=== PATIENT | female | born 1940 | race Caucasian/White ===

== ENCOUNTER 2017-02-23 16:06 | Emergency (ER) | payer MEDICARE ==
[2017-02-23 16:59] LABS: BASOPHIL 0.7 % (0-2); EOSINOPHIL 2.9 % (0-7); HCT 34.2 % (37.0-47.0); HGB 11.6 g/dl (12.5-16.0); LYMPHOCYTE 21.3 % (15-48); MCHC 33.9 g/dL (32.0-36.0); MCV 94.2 fL (78.0-100.0); MONOCYTE 11.1 % (0-12); MPV 8.7 fL (6.0-9.5); PLT 271 K/uL (150-400); RBC 3.63 M/uL (4.20-5.40); RDW 12.1 % (11.5-14.0); WBC 9.5 K/uL (4.0-10.5)
[2017-02-23 17:15] LABS: INR 1.06 (0.9-1.2); PROTHROMBIN TIME 13.4 SECONDS (11.7-14.0); PTT 30.6 SECONDS (23.2-31.4)
[2017-02-23 17:23] LABS: TROPONIN T < 0.010 ng/mL
[2017-02-23 17:25] LABS: ALBUMIN 3.9 g/dL (3.4-4.8); BILIRUBIN - TOTAL 0.4 mg/dL (0.1-1.0); CREATININE 1.3 mg/dL (0.5-1.0); POTASSIUM 4.3 mmol/L (3.5-5.1); TOTAL PROTEIN 7.9 g/dL (6.4-8.3)
[2017-02-23 17:27] LABS: BILIRUBIN NEGATIVE (NEGATIVE); BLOOD 3+ Ery/uL (NEGATIVE); CLARITY CLEAR (CLEAR); COLOR YELLOW (YELLOW); GLUCOSE (U) NORMAL (NORMAL); KETONE (U) NEGATIVE (NEGATIVE); LEUKOCYTES 2+ Leu/uL (NEGATIVE); NITRITE NEGATIVE (NEGATIVE); PROTEIN 1+ mg/dL (NEGATIVE); SPECIFIC GRAVITY 1.015 (1.001-1.030); UROBILINOGEN 0.2 mg/dL (0.2-1.0)
[2017-02-23 17:28] LABS: PRO-BNP 3636 pg/mL (0-450)
[2017-02-23 17:33] LABS: BACTERIA 3+; URINARY RBC 20-50; URINARY WBC TNTC
== END 2017-02-23 18:46 | disposition home or self-care (01) ==
LOC: FER 16:06
PROVIDERS: Emergency Medicine
DX: I11.0 Hypertensive heart disease with heart failure (principal); I50.9 Heart failure, unspecified; N39.0 Urinary tract infection, site not specified; E03.9 Hypothyroidism, unspecified; Z87.891 Personal history of nicotine dependence; Z79.82 Long term (current) use of aspirin; Z79.899 Other long term (current) drug therapy; Z95.1 Presence of aortocoronary bypass graft
CPT/HCPCS: 36415; 71010; 80053; 81001; 83880; 84484; 85025; 85610; 85730; 87088; 93005; J1940

== ENCOUNTER 2017-02-26 21:36 | Inpatient (IN) | payer MEDICARE ==
[~2017-02-26] VITALS: Ht 152.4 cm; Wt 52.3 kg
[2017-02-26 23:17] LABS: BASOPHIL 0.5 % (0-2); EOSINOPHIL 2.6 % (0-7); HCT 35.5 % (37.0-47.0); HGB 12.2 g/dl (12.5-16.0); LYMPHOCYTE 20.6 % (15-48); MCH 32.8 pg (25.0-31.0); MCHC 34.4 g/dL (32.0-36.0); MCV 95.4 fL (78.0-100.0); MONOCYTE 10.6 % (0-12); NEUTROPHIL 65.7 % (41-80); PLT 281 K/uL (150-400); RBC 3.72 M/uL (4.20-5.40); RDW 12.5 % (11.5-14.0)
[2017-02-27] LABS: ALBUMIN 3.9 g/dL (3.4-4.8); BILIRUBIN - TOTAL 0.2 mg/dL (0.1-1.0); CREATININE 1.5 mg/dL (0.5-1.0); GLOBULIN (CALCULATION) 3.5 g/dL (2.2-4.2); POTASSIUM 4.6 mmol/L (3.5-5.1); TOTAL PROTEIN 7.4 g/dL (6.4-8.3); TROPONIN T < 0.010 ng/mL
[2017-02-27 00:01] LABS: PRO-BNP 3033 pg/mL (0-450)
[2017-02-27 06:08] LABS: BASOPHIL 0.4 % (0-2); EOSINOPHIL 3.2 % (0-7); HCT 31.9 % (37.0-47.0); HGB 10.8 g/dl (12.5-16.0); LYMPHOCYTE 21.7 % (15-48); MCH 32.4 pg (25.0-31.0); MCHC 33.9 g/dL (32.0-36.0); MCV 95.8 fL (78.0-100.0); MONOCYTE 11.7 % (0-12); MPV 8.8 fL (6.0-9.5); PLT 263 K/uL (150-400); RBC 3.33 M/uL (4.20-5.40); RDW 12.3 % (11.5-14.0); WBC 9.8 K/uL (4.0-10.5)
[2017-02-27 06:35] LABS: CREATININE 1.5 mg/dL (0.5-1.0); MAGNESIUM 2.12 mg/dL (1.40-2.10); POTASSIUM 3.9 mmol/L (3.5-5.1)
[2017-02-27 06:38] LABS: CKMB 1.09 ng/mL (0.97-4.94); TROPONIN T < 0.010 ng/mL
[2017-02-27 06:41] LABS: PRO-BNP 3697 pg/mL (0-450)
[2017-02-27 10:10] LABS: FT4 (FREE T4) 1.69 ng/dL (0.93-1.70)
[2017-02-27 10:18] LABS: FOLIC ACID (SERUM) 12.6 ng/mL (5.6-45.8)
[2017-02-27 12:43] LABS: CKMB 1.17 ng/mL (0.97-4.94); TROPONIN T < 0.010 ng/mL
[2017-02-27 16:37] LABS: BILIRUBIN NEGATIVE (NEGATIVE); BLOOD 1+ Ery/uL (NEGATIVE); CLARITY CLEAR (CLEAR); COLOR YELLOW (YELLOW); GLUCOSE (U) NORMAL (NORMAL); KETONE (U) NEGATIVE (NEGATIVE); LEUKOCYTES NEGATIVE Leu/uL (NEGATIVE); NITRITE NEGATIVE (NEGATIVE); PROTEIN NEGATIVE (NEGATIVE); SPECIFIC GRAVITY 1.015 (1.001-1.030); UROBILINOGEN 0.2 mg/dL (0.2-1.0)
[2017-02-27 16:40] LABS: BACTERIA TRACE; SQUAMOUS EPITHELIAL CELLS RARE; URINARY WBC RARE
[2017-02-28 04:13] LABS: BASOPHIL 0.4 % (0-2); EOSINOPHIL 4.9 % (0-7); HCT 29.4 % (37.0-47.0); HGB 9.9 g/dl (12.5-16.0); LYMPHOCYTE 25.7 % (15-48); MCH 32.1 pg (25.0-31.0); MCHC 33.7 g/dL (32.0-36.0); MCV 95.5 fL (78.0-100.0); MONOCYTE 9.4 % (0-12); MPV 9.4 fL (6.0-9.5); NEUTROPHIL 59.6 % (41-80); PLT 252 K/uL (150-400); RBC 3.08 M/uL (4.20-5.40); WBC 7.6 K/uL (4.0-10.5)
[2017-02-28 04:40] LABS: CREATININE 1.6 mg/dL (0.5-1.0); MAGNESIUM 2.05 mg/dL (1.40-2.10); POTASSIUM 3.9 mmol/L (3.5-5.1)
[2017-03-01 06:39] LABS: CREATININE 1.6 mg/dL (0.5-1.0); POTASSIUM 4.6 mmol/L (3.5-5.1)
[2017-03-01] MEDS ORDERED: IMDUR 30MG TABL30 MG PO (13:05)
[2017-03-01] MEDS ORDERED: NYSTATIN SUSP1 ML/ML PO (13:05)
[2017-03-01] MEDS ORDERED: COREG 3.125M3.125 MG PO (13:07)
[2017-03-01] MEDS ORDERED: NIFEREX150 MG PO (13:07)
[2017-03-01] MEDS ORDERED: LASIX40 MG PO (13:07)
[2017-03-01] MEDS ORDERED: SYNTHROID75 MCG PO (13:09)
[2017-03-01] MEDS ORDERED: ANTIVERT25 MG PO (13:09)
[2017-03-01] MEDS ORDERED: PEPCID AC20 MG PO (13:09)
[2017-03-01] MEDS ORDERED: LIPITOR 10MG TA10 MG PO (13:10)
[2017-03-01] MEDS ORDERED: K-DUR20 MEQ PO (13:10)
[2017-03-01] MEDS ORDERED: ASPIR 8181 MG PO (13:10)
[2017-03-01] MEDS ORDERED: VITAMIN B-121000 MC1 PO (13:11)
== END 2017-03-01 14:02 | disposition home health service (06) | DRG 291 ==
LOC: FER 21:36 → FTCU 02-27 00:28 → FMS 02-28 15:00
PROVIDERS: Emergency Medicine; Nurse Practitioner; ADMIT Internal Medicine
DX: I13.0 Hypertensive heart and chronic kidney disease with heart failure and stage 1 through stage 4 chronic kidney disease, or unspecified chronic kidney disease (principal); I50.33 Acute on chronic diastolic (congestive) heart failure; B37.0 Candidal stomatitis; N39.0 Urinary tract infection, site not specified; E03.9 Hypothyroidism, unspecified; I25.10 Atherosclerotic heart disease of native coronary artery without angina pectoris; Z95.1 Presence of aortocoronary bypass graft; K25.9 Gastric ulcer, unspecified as acute or chronic, without hemorrhage or perforation; Z87.891 Personal history of nicotine dependence; R73.9 Hyperglycemia, unspecified; I45.10 Unspecified right bundle-branch block; Z79.899 Other long term (current) drug therapy; N18.3 Chronic kidney disease, stage 3 (moderate); D51.9 Vitamin B12 deficiency anemia, unspecified; D50.9 Iron deficiency anemia, unspecified; Z79.82 Long term (current) use of aspirin
CPT/HCPCS: 36415; 71010; 80048; 80053; 81001; 82550; 82553; 82607; 82746; 83540; 83550; 83735; 83880; 84439; 84443; 84484; 85025; 87088; 93005; 97162; 97530-GP; G0378; J1644; J1940; J2916; J3420

== ENCOUNTER 2017-03-10 15:08 | Emergency (ER) | payer MEDICARE ==
[~2017-03-10 15:08] MED LIST: ANTIVERT25 MG PO; ASPIR 8181 MG PO; COREG 3.125M3.125 MG PO; IMDUR 30MG TABL30 MG PO; K-DUR20 MEQ PO; LASIX40 MG PO; LIPITOR 10MG TA10 MG PO; NIFEREX150 MG PO; NYSTATIN SUSP1 ML/ML PO; PEPCID AC20 MG PO; SYNTHROID75 MCG PO; VITAMIN B-121000 MC1 PO
[2017-03-10 16:20] LABS: BASOPHIL 0.4 % (0-2); EOSINOPHIL 1.6 % (0-7); HCT 32.4 % (37.0-47.0); HGB 10.7 g/dl (12.5-16.0); LYMPHOCYTE 12.9 % (15-48); MCH 32.3 pg (25.0-31.0); MCV 97.9 fL (78.0-100.0); MONOCYTE 11.5 % (0-12); MPV 9.7 fL (6.0-9.5); NEUTROPHIL 73.6 % (41-80); PLT 288 K/uL (150-400); RBC 3.31 M/uL (4.20-5.40); RDW 12.3 % (11.5-14.0); WBC 13.6 K/uL (4.0-10.5)
[2017-03-10 16:39] LABS: CREATININE 1.5 mg/dL (0.5-1.0); POTASSIUM 4.4 mmol/L (3.5-5.1)
[2017-03-10 16:40] LABS: BILIRUBIN NEGATIVE (NEGATIVE); BLOOD TRACE-INTACT Ery/uL (NEGATIVE); CLARITY CLEAR (CLEAR); COLOR YELLOW (YELLOW); GLUCOSE (U) NORMAL (NORMAL); KETONE (U) NEGATIVE (NEGATIVE); LEUKOCYTES NEGATIVE Leu/uL (NEGATIVE); NITRITE NEGATIVE (NEGATIVE); PROTEIN TRACE (LOW) mg/dL (NEGATIVE); UROBILINOGEN 0.2 mg/dL (0.2-1.0); pH 5.5 (5.0-9.0)
[2017-03-10 16:55] LABS: BACTERIA TRACE; SQUAMOUS EPITHELIAL CELLS RARE
== END 2017-03-10 20:45 | disposition home or self-care (01) ==
LOC: FER 15:08
PROVIDERS: Emergency Medicine
DX: I50.9 Heart failure, unspecified (principal); Z79.899 Other long term (current) drug therapy; Z95.1 Presence of aortocoronary bypass graft
CPT/HCPCS: 36415; 36600; 71010; 80048; 81001; 82803; 83880; 85025; 94640; 94664; J2930

== ENCOUNTER 2017-03-15 19:21 | Emergency (ER) | payer MEDICARE ==
[2017-03-15 19:59] LABS: BASOPHIL 0.3 % (0-2); EOSINOPHIL 1.2 % (0-7); HCT 31.4 % (37.0-47.0); LYMPHOCYTE 10.7 % (15-48); MCH 32.2 pg (25.0-31.0); MCHC 31.8 g/dL (32.0-36.0); MONOCYTE 3.3 % (0-12); MPV 9.4 fL (6.0-9.5); NEUTROPHIL 84.5 % (41-80); PLT 298 K/uL (150-400); RBC 3.11 M/uL (4.20-5.40); RDW 12.4 % (11.5-14.0); WBC 10.7 K/uL (4.0-10.5)
[2017-03-15 20:10] LABS: INR 1.14 (0.9-1.2); PROTHROMBIN TIME 14.2 SECONDS (11.7-14.0); PTT 30.1 SECONDS (23.2-31.4)
[2017-03-15 20:21] LABS: ALBUMIN 3.6 g/dL (3.4-4.8); BILIRUBIN - TOTAL 0.4 mg/dL (0.1-1.0); CREATININE 1.2 mg/dL (0.5-1.0); GLOBULIN (CALCULATION) 3.9 g/dL (2.2-4.2); POTASSIUM 3.6 mmol/L (3.5-5.1); TOTAL PROTEIN 7.5 g/dL (6.4-8.3)
[2017-03-15 20:23] LABS: TROPONIN T < 0.010 ng/mL
[2017-03-15 20:33] LABS: PRO-BNP 2560 pg/mL (0-450)
== END 2017-03-15 22:14 | disposition home or self-care (01) ==
LOC: FER 19:21
PROVIDERS: Emergency Medicine
DX: R06.00 Dyspnea, unspecified (principal); I50.9 Heart failure, unspecified; Z99.81 Dependence on supplemental oxygen; Z95.1 Presence of aortocoronary bypass graft
CPT/HCPCS: 36415; 36600; 71010; 80053; 82550; 82553; 82803; 83880; 84484; 85025; 85610; 85730; 93005; J1940